=== PATIENT | female | born 1990 | race Caucasian/White ===

== ENCOUNTER 2021-05-06 23:11 | Inpatient (IN) | payer MEDICAID ==
[~2021-05-06] VITALS: Ht 154.9 cm; Wt 88.0 kg
[2021-05-07] VITALS (17 sets, daily range): BP systolic 97–121; BP diastolic 41–70
[2021-05-07] MEDS ORDERED: LORAZEPAM 0.5MG TABLET PO ONE (00:45)
[2021-05-07 00:56] LABS: CHLORIDE 106 mEq/L (98-107)
[2021-05-07 01:11] LABS: BASOPHILS % 0.3 % (0.0-2.0); EOSINOPHILS % 1.1 % (0.0-5.0); LYMPHOCYTES % 29.5 % (20.0-50.0); MEAN CORPUSCULAR HEMOGLOBIN 19.5 pg (28.0-32.0); MEAN CORPUSCULAR VOLUME 63.5 fL (81.0-99.0); MEAN PLATELET VOLUME 8.9 fl (7.4-10.4); MONOCYTES % 8.5 % (2.0-8.0); NEUTROPHILS % 60.6 % (40.0-76.0); PLATELET 289 x1000/uL (130-400); RED BLOOD CELL COUNT 2.19 mill/uL (4.2-5.4); RED CELL DISTRIBUTION WIDTH 18.1 % (11.6-14.6)
[2021-05-07 01:16] LABS: HEMATOCRIT. 13.9 % (36.0-48.0); HEMOGLOBIN. 4.3 g/dL (12.0-16.0)
[2021-05-07 01:53] LABS: PARTIAL THROMBOPLASTIN TIME 21.5 sec (23.4-31.0); PROTHROMBIN TIME 10.9 sec (9.6-11.0)
[2021-05-07 04:53] LABS: PLATELET ESTIMATE NORMAL
[2021-05-07] MEDS ORDERED: DOCUSATE SODIUM 100MG CAPSULE PO PRN (05:45)
[2021-05-07] MEDS ORDERED: HYDROCODONE/ACETAMINOPHEN 5/325MG TABLET PO PRN ×3 (05:45→11:00)
[2021-05-07] MEDS ORDERED: ONDANSETRON HCL 4MG/2ML INJ IV PRN ×3 (05:45→11:00)
[2021-05-07] MEDS ORDERED: ACETAMINOPHEN 325MG TABLET PO PRN ×5 (05:45→11:00)
[2021-05-07] MEDS ORDERED: MAGNESIUM/ALUMINUM HYDROXIDE/SIMETHICONE 30ML UDC PO PRN (05:45)
[2021-05-07] MEDS ORDERED: IPRATROPIUM/ALBUTEROL 0.5-3(2.5)MG/3ML NEB NEB PRN (05:45)
[2021-05-07] MEDS ORDERED: LORAZEPAM 0.5MG TABLET PO PRN (05:45)
[2021-05-07 06:13] LABS: TOTAL IRON BINDING CAPACITY 400 ug/dL (250-450)
[2021-05-07 06:20] LABS: CREATINE KINASE 69 IU/L (26-192); CREATINE KINASE MB FRACTION < 1.0 ng/mL (0.5-3.6)
[2021-05-07 07:25] LABS: *AMPHETAMINES SCREEN URINE NEGATIVE (NEGATIVE); *BARBITURATES SCREEN URINE NEGATIVE (NEGATIVE); *BENZODIAZEPINES SCREEN URINE NEGATIVE (NEGATIVE); *COCAINE SCREEN URINE NEGATIVE (NEGATIVE); METHADONE URINE SCREEN NEGATIVE (NEGATIVE); OPIATES URINE SCREEN NEGATIVE (NEGATIVE); PHENCYCLIDINE URINE SCREEN NEGATIVE (NEGATIVE)
[2021-05-07 07:26] LABS: CANNABINOID URINE SCREEN NEGATIVE (NEGATIVE)
[2021-05-07] MEDS ORDERED: ACETAMINOPHEN 325MG TABLET PO SCH (09:00)
[2021-05-07] MEDS ORDERED: DIPHENHYDRAMINE 50MG/ML VIAL IV SCH (09:00)
[2021-05-07] MEDS: MULTIVITAMINS,THER W-MINERALS TABLET PO SCH (09:46)
[2021-05-07] MEDS: FOLIC ACID 1MG TABLET PO SCH (09:46)
[2021-05-07] MEDS: THIAMINE HCL 100MG TABLET PO SCH (09:46)
[2021-05-07] MEDS ORDERED: DIPHENHYDRAMINE 50MG/ML VIAL IV NR (10:45)
[2021-05-07] MEDS ORDERED: MORPHINE SULFATE 2 MG/ML CPJ (NOT FOR IM USE) IV PRN ×2 (11:00)
[2021-05-07] MEDS ORDERED: IPRATROPIUM/ALBUTEROL 0.5-3(2.5)MG/3ML NEB HHN PRN ×2 (11:00)
[2021-05-07] MEDS ORDERED: SODIUM CHLORIDE 0.9% 1,000 ML IV SCH (11:00)
[2021-05-07] MEDS: SODIUM CHLORIDE 0.9% 1,000 ML IV SCH (11:48)
[2021-05-07 19:03] LABS: HEMATOCRIT 17.6 % (36.0-48.0); HEMOGLOBIN 5.5 g/dL (12.0-16.0)
[2021-05-07 19:10] LABS: HCG SCREEN NEGATIVE
[2021-05-07 19:12] LABS: CREATINE KINASE 65 IU/L (26-192)
[2021-05-07 19:13] LABS: CREATINE KINASE MB FRACTION < 1.0 ng/mL (0.5-3.6)
[2021-05-07] MEDS ORDERED: DIPHENHYDRAMINE 25MG CAPSULE PO NR (19:15)
[2021-05-07] MEDS: ACETAMINOPHEN 325MG TABLET PO PRN (21:01)
[2021-05-07 23:07] LABS: FOLIC ACID (FOLATE) SERUM 11.1 ng/mL (>5.38)
[2021-05-08] VITALS (15 sets, daily range): BP systolic 92–123; BP diastolic 47–70
[2021-05-08] MEDS: SODIUM CHLORIDE 0.9% 1,000 ML IV SCH ×3 (05:50→17:17)
[2021-05-08 06:22] LABS: CHLORIDE 109 mEq/L (98-107)
[2021-05-08 06:38] LABS: LDL CHOLESTEROL 67 mg/dL (5-100)
[2021-05-08 06:39] LABS: HDL CHOLESTEROL 39 mg/dL (40-59)
[2021-05-08 07:06] LABS: BASOPHILS % 0.4 % (0.0-2.0); EOSINOPHILS % 2.2 % (0.0-5.0); HEMATOCRIT. 21.6 % (36.0-48.0); LYMPHOCYTES % 44.9 % (20.0-50.0); MEAN CORPUSCULAR HEMOGLOBIN 22.8 pg (28.0-32.0); MEAN CORPUSCULAR VOLUME 72.1 fL (81.0-99.0); MEAN PLATELET VOLUME 9.8 fl (7.4-10.4); NEUTROPHILS % 43.5 % (40.0-76.0); PLATELET 254 x1000/uL (130-400); RED CELL DISTRIBUTION WIDTH 25.4 % (11.6-14.6)
[2021-05-08] MEDS ORDERED: DIPHENHYDRAMINE 50MG/ML VIAL IV NR (08:45)
[2021-05-08] MEDS: THIAMINE HCL 100MG TABLET PO SCH (08:49)
[2021-05-08] MEDS: MULTIVITAMINS,THER W-MINERALS TABLET PO SCH (08:49)
[2021-05-08] MEDS: FOLIC ACID 1MG TABLET PO SCH (08:49)
[2021-05-08 08:54] LABS: HEMOGLOBIN. 6.8 g/dL (12.0-16.0)
[2021-05-08] MEDS ORDERED: ACETAMINOPHEN 325MG TABLET PO NR (09:00)
[2021-05-08] MEDS: CYANOCOBALAMIN 1000MCG/ML VIAL IM SCH (09:29)
[2021-05-08 18:02] LABS: HEMATOCRIT 23.7 % (36.0-48.0)
[2021-05-08] MEDS: ACETAMINOPHEN 325MG TABLET PO PRN (21:37)
[2021-05-09] VITALS: BP 109/63
[2021-05-09 04:00] VITALS: BP 96/53
[2021-05-09] MEDS: SODIUM CHLORIDE 0.9% 1,000 ML IV SCH ×3 (06:04→22:11)
[2021-05-09 06:13] LABS: BASOPHILS % 0.5 % (0.0-2.0); EOSINOPHILS % 3.4 % (0.0-5.0); HEMATOCRIT. 22.6 % (36.0-48.0); HEMOGLOBIN. 7.1 g/dL (12.0-16.0); LYMPHOCYTES % 34.6 % (20.0-50.0); MEAN CORPUSCULAR HEMOGLOBIN 22.9 pg (28.0-32.0); MEAN CORPUSCULAR VOLUME 72.5 fL (81.0-99.0); MEAN PLATELET VOLUME 9.8 fl (7.4-10.4); MONOCYTES % 7.2 % (2.0-8.0); NEUTROPHILS % 54.3 % (40.0-76.0); PLATELET 238 x1000/uL (130-400); RED BLOOD CELL COUNT 3.12 mill/uL (4.2-5.4); RED CELL DISTRIBUTION WIDTH 24.6 % (11.6-14.6)
[2021-05-09 06:26] LABS: CHLORIDE 109 mEq/L (98-107)
[2021-05-09 08:00] VITALS: BP 97/63
[2021-05-09] MEDS: FOLIC ACID 1MG TABLET PO SCH (09:43)
[2021-05-09] MEDS: CYANOCOBALAMIN 1000MCG/ML VIAL IM SCH (09:43)
[2021-05-09] MEDS: THIAMINE HCL 100MG TABLET PO SCH (09:43)
[2021-05-09] MEDS: MULTIVITAMINS,THER W-MINERALS TABLET PO SCH (09:43)
[2021-05-09 12:00] VITALS: BP 117/55
[2021-05-09] MEDS: ACETAMINOPHEN 325MG TABLET PO PRN (12:09)
[2021-05-09 16:00] VITALS: BP 107/63
[2021-05-09 16:13] LABS: BASOPHILS % 0.4 % (0.0-2.0); EOSINOPHILS % 2.5 % (0.0-5.0); HEMATOCRIT. 23.3 % (36.0-48.0); HEMOGLOBIN. 7.3 g/dL (12.0-16.0); LYMPHOCYTES % 29.3 % (20.0-50.0); MEAN CORPUSCULAR HEMOGLOBIN 23.1 pg (28.0-32.0); MEAN CORPUSCULAR VOLUME 73.4 fL (81.0-99.0); MEAN PLATELET VOLUME 9.4 fl (7.4-10.4); MONOCYTES % 8.6 % (2.0-8.0); NEUTROPHILS % 59.2 % (40.0-76.0); PLATELET 254 x1000/uL (130-400); RED BLOOD CELL COUNT 3.17 mill/uL (4.2-5.4); RED CELL DISTRIBUTION WIDTH 24.1 % (11.6-14.6)
[2021-05-09 20:00] VITALS: BP 117/73
[2021-05-10] VITALS: BP 97/66
[2021-05-10 04:00] VITALS: BP 98/65
[2021-05-10 06:30] LABS: BASOPHILS % 0.7 % (0.0-2.0); EOSINOPHILS % 2.8 % (0.0-5.0); HEMATOCRIT. 22.4 % (36.0-48.0); HEMOGLOBIN. 7.4 g/dL (12.0-16.0); LYMPHOCYTES % 32.6 % (20.0-50.0); MEAN CORPUSCULAR HEMOGLOBIN 23.4 pg (28.0-32.0); MEAN CORPUSCULAR VOLUME 71.5 fL (81.0-99.0); MEAN PLATELET VOLUME 9.8 fl (7.4-10.4); MONOCYTES % 7.9 % (2.0-8.0); PLATELET 266 x1000/uL (130-400); RED BLOOD CELL COUNT 3.14 mill/uL (4.2-5.4); RED CELL DISTRIBUTION WIDTH 25.2 % (11.6-14.6)
[2021-05-10 08:00] VITALS: BP 102/68
[2021-05-10] MEDS: MULTIVITAMINS,THER W-MINERALS TABLET PO SCH (08:48)
[2021-05-10] MEDS: FOLIC ACID 1MG TABLET PO SCH (08:48)
[2021-05-10] MEDS: CYANOCOBALAMIN 1000MCG/ML VIAL IM SCH (08:48)
[2021-05-10] MEDS: THIAMINE HCL 100MG TABLET PO SCH (08:48)
[2021-05-10] MEDS: SODIUM CHLORIDE 0.9% 1,000 ML IV SCH (08:51)
[2021-05-10 10:00] VITALS: BP 106/70
[2021-05-10 11:30] VITALS: BP 100/68
[2021-05-10] MEDS ORDERED: CYAN50003 MT (11:39)
[2021-05-10 12:28] VITALS: BP 100/56
== END 2021-05-10 13:35 | disposition home or self-care (01) | DRG 532 ==
LOC: ER 23:11 → 5EST 05-07 01:38 → ENRESERV 05-07 07:10
PROVIDERS: ADMIT Internal Medicine; ATTEND Internal Medicine
PROC: 30233N1 Transfusion of Nonautologous Red Blood Cells into Peripheral Vein, Percutaneous Approach (ICD-10-PCS; principal; 2021-05-08)
DX: N92.0 Excessive and frequent menstruation with regular cycle (principal); I24.8 Other forms of acute ischemic heart disease; D50.9 Iron deficiency anemia, unspecified; N94.6 Dysmenorrhea, unspecified; R00.0 Tachycardia, unspecified
CPT/HCPCS: 36415; 71045; 76830; 76856; 80048; 80053; 80061; 80305; 82550; 82553; 82607; 82728; 82746; 83540; 83550; 83880; 84443; 84484; 84703; 85014; 85018; 85025; 85044; 85379; 86850; 86900; 86920; 93005; 93306; 99285; J1200; J3420; J7030; P9016; P9021; Q0163

== ENCOUNTER 2021-05-30 14:01 | Inpatient (IN) | payer MEDICAID, OTHER ==
[~2021-05-30] VITALS: Ht 154.9 cm; Wt 76.4 kg
[~2021-05-30 14:01] MED LIST: CYAN50003 MT
[2021-05-30] MEDS ORDERED: SODIUM CHLORIDE 0.9% 1,000 ML IV ONE (15:30)
[2021-05-30 15:34] LABS: BASOPHILS % 0.6 % (0.0-2.0); EOSINOPHILS % 1.4 % (0.0-5.0); LYMPHOCYTES % 30.7 % (20.0-50.0); MEAN CORPUSCULAR VOLUME 67.6 fL (81.0-99.0); MEAN PLATELET VOLUME 9.1 fl (7.4-10.4); MONOCYTES % 8.6 % (2.0-8.0); NEUTROPHILS % 58.7 % (40.0-76.0); PLATELET 316 x1000/uL (130-400); RED BLOOD CELL COUNT 2.12 mill/uL (4.2-5.4); RED CELL DISTRIBUTION WIDTH 24.8 % (11.6-14.6)
[2021-05-30 15:39] LABS: HEMOGLOBIN. 4.2 g/dL (12.0-16.0)
[2021-05-30 15:40] LABS: HEMATOCRIT. 14.3 % (36.0-48.0)
[2021-05-30 15:43] LABS: CHLORIDE 110 mEq/L (98-107)
[2021-05-30 15:47] LABS: PARTIAL THROMBOPLASTIN TIME < 21.0 sec (23.4-31.0); PROTHROMBIN TIME 10.9 sec (9.6-11.0)
[2021-05-30 15:58] LABS: PLATELET ESTIMATE NORMAL
[2021-05-30 16:17] LABS: HCG SCREEN NEGATIVE
[2021-05-30] MEDS ORDERED: IPRATROPIUM/ALBUTEROL 0.5-3(2.5)MG/3ML NEB NEB PRN (18:30)
[2021-05-30] MEDS ORDERED: DOCUSATE SODIUM 100MG CAPSULE PO PRN (18:30)
[2021-05-30] MEDS ORDERED: GUAIFENESIN 200MG/10ML SUGAR FREE UDC PO PRN (18:30)
[2021-05-30] MEDS ORDERED: KETOROLAC 15MG/ML VIAL IV PRN (18:30)
[2021-05-30] MEDS ORDERED: ACETAMINOPHEN 325MG TABLET PO PRN ×2 (18:30)
[2021-05-30] MEDS ORDERED: MAGNESIUM/ALUMINUM HYDROXIDE/SIMETHICONE 30ML UDC PO PRN (18:30)
[2021-05-30] MEDS ORDERED: ONDANSETRON HCL 4MG/2ML INJ IV PRN (18:30)
[2021-05-30] MEDS ORDERED: NITROGLYCERIN 0.4MG TABLET SL SL PRN (18:30)
[2021-05-30] MEDS ORDERED: CLONIDINE 0.1MG TABLET PO PRN (18:30)
[2021-05-30 19:34] LABS: ETHANOL BLOOD < 10 mg/dL
[2021-05-30 19:37] LABS: TOTAL IRON BINDING CAPACITY 453 ug/dL (250-450)
[2021-05-30 19:38] LABS: FOLIC ACID (FOLATE) SERUM >20 ng/mL ng/mL (>5.38)
[2021-05-30 19:50] LABS: VITAMIN B12 SERUM 516 pg/mL (211-911)
[2021-05-30] MEDS ORDERED: ZOLPIDEM TARTRATE 5MG TABLET PO PRN (21:00)
[2021-05-30 21:48] LABS: *AMPHETAMINES SCREEN URINE NEGATIVE (NEGATIVE); *BARBITURATES SCREEN URINE NEGATIVE (NEGATIVE); *BENZODIAZEPINES SCREEN URINE NEGATIVE (NEGATIVE); *COCAINE SCREEN URINE NEGATIVE (NEGATIVE); METHADONE URINE SCREEN NEGATIVE (NEGATIVE); OPIATES URINE SCREEN NEGATIVE (NEGATIVE); PHENCYCLIDINE URINE SCREEN NEGATIVE (NEGATIVE)
[2021-05-30 21:49] LABS: CANNABINOID URINE SCREEN NEGATIVE (NEGATIVE)
[2021-05-31 05:55] LABS: CHLORIDE 110 mEq/L (98-107)
[2021-05-31 06:01] LABS: PHOSPHORUS 3.7 mg/dL (2.5-4.9)
[2021-05-31 06:05] LABS: MEAN CORPUSCULAR HEMOGLOBIN 22.3 pg (28.0-32.0); MEAN CORPUSCULAR VOLUME 74.8 fL (81.0-99.0); MEAN PLATELET VOLUME 9.2 fl (7.4-10.4); PLATELET 252 x1000/uL (130-400); RED BLOOD CELL COUNT 2.15 mill/uL (4.2-5.4); RED CELL DISTRIBUTION WIDTH 27.8 % (11.6-14.6)
[2021-05-31 06:53] LABS: HEMOGLOBIN. 4.8 g/dL (12.0-16.0)
[2021-05-31] MEDS: FAMOTIDINE 20MG TABLET PO SCH ×2 (07:59→21:00)
[2021-05-31 08:32] LABS: LYMPHOCYTES % 40.8 % (20.0-50.0); MONOCYTES % 10.1 % (2.0-8.0); NEUTROPHILS % 46.7 % (40.0-76.0)
[2021-05-31 08:33] LABS: BASOPHILS % 0.6 % (0.0-2.0); EOSINOPHILS % 1.8 % (0.0-5.0)
[2021-05-31 11:40] VITALS: BP 117/56
[2021-05-31 12:45] VITALS: BP 117/56
[2021-05-31] MEDS ORDERED: ASCO500C15 PO (12:58)
[2021-05-31] MEDS ORDERED: FERR325T6 PO (12:58)
[2021-05-31 16:00] VITALS: BP 140/52
[2021-05-31 17:15] VITALS: BP 168/115
[2021-05-31 17:30] VITALS: BP 105/45
[2021-05-31] MEDS ORDERED: DIPHENHYDRAMINE 50MG/ML VIAL IV PRN (18:15)
[2021-05-31 20:00] VITALS: BP 112/63
[2021-05-31] MEDS ORDERED: IRON SUCROSE COMPLEX 100 MG/5 ML ML IV SCH (20:30)
[2021-06-01] VITALS (14 sets, daily range): BP systolic 93–122; BP diastolic 43–70
[2021-06-01] MEDS: FAMOTIDINE 20MG TABLET PO SCH ×2 (09:14→09:15)
[2021-06-01 09:17] LABS: BASOPHILS % 0.6 % (0.0-2.0); EOSINOPHILS % 2.2 % (0.0-5.0); HEMATOCRIT. 27.3 % (36.0-48.0); HEMOGLOBIN. 8.7 g/dL (12.0-16.0); LYMPHOCYTES % 22.7 % (20.0-50.0); MEAN CORPUSCULAR HEMOGLOBIN 25.8 pg (28.0-32.0); MEAN CORPUSCULAR VOLUME 80.6 fL (81.0-99.0); MEAN PLATELET VOLUME 9.1 fl (7.4-10.4); MONOCYTES % 6.5 % (2.0-8.0); PLATELET 236 x1000/uL (130-400); RED BLOOD CELL COUNT 3.38 mill/uL (4.2-5.4)
[2021-06-01 12:05] LABS: INR 1.1; PROTHROMBIN TIME 11.4 sec (9.6-11.0)
[2021-06-01] MEDS ORDERED: IRON SUCROSE COMPLEX 100 MG/5 ML ML IV SCH (14:00)
== END 2021-06-01 17:10 | disposition home or self-care (01) | DRG 532 ==
LOC: ER 14:01 → 6WST 16:34 → EDBEDREQTM 16:45 → EDBEDREQ 16:45 → ENRESERV 05-31 07:53
PROVIDERS: ADMIT Internal Medicine; ATTEND Internal Medicine
PROC: 30233N1 Transfusion of Nonautologous Red Blood Cells into Peripheral Vein, Percutaneous Approach (ICD-10-PCS; principal; 2021-05-30)
DX: N93.8 Other specified abnormal uterine and vaginal bleeding (principal); D62 Acute posthemorrhagic anemia; E66.9 Obesity, unspecified; Z20.822 Contact with and (suspected) exposure to COVID-19; Z68.31 Body mass index [BMI] 31.0-31.9, adult; Z79.899 Other long term (current) drug therapy
CPT/HCPCS: 36415; 71045; 76830; 76856; 80053; 80305; 80320; 82607; 82746; 83540; 83550; 83735; 84100; 84703; 85025; 85384; 86078; 86850; 86900; 86920; 87426; 93005; 99291; J1200; J7030; P9016; G0480